=== PATIENT | male | born 1970 | race Hispanic/Latino ===

== ENCOUNTER 2016-12-24 17:55 | Emergency (ER) | payer OTHER ==
[2016-12-24 17:55] VITALS: BMI 28.0
[2016-12-24 18:14] VITALS: RESP 16
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
[2016-12-24 20:15] VITALS: BP 144/81; PULSE 72; TEMP 98.2; O2SAT 99
--- NOTE | 2016-12-25 10:05 | RAD ---
PROCEDURE: Left Knee Radiographs. HISTORY: Pain. COMPARISON: None. FINDINGS: BONES: Normal. No fracture. JOINTS: Normal. No osteoarthritis. JOINT EFFUSION: None. OTHER FINDINGS: None. IMPRESSION: Normal radiographs of the left knee.
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
== END 2016-12-24 20:16 | disposition home or self-care (01) ==
LOC: ED 17:55
DX: S83.92XA Sprain of unspecified site of left knee, initial encounter (principal); V49.59XA Passenger injured in collision with other motor vehicles in traffic accident, initial encounter; Y92.410 Unspecified street and highway as the place of occurrence of the external cause; M54.9 Dorsalgia, unspecified
CPT/HCPCS: 29530; 72110; 73562; 96372; 99284; J1885

== ENCOUNTER 2017-02-06 09:47 | Emergency (ER) | payer OTHER ==
[2017-02-06 09:53] VITALS: BMI 27.9
[2017-02-06 09:56] VITALS: BP 161/92; PULSE 91; RESP 17; TEMP 99; O2SAT 96
--- NOTE | 2017-02-06 10:31 | ED PDOC ---
Arrival/HPI - General Chief Complaint: Upper Extremity Problem/Injury Time Seen by Provider: 02/06/17 10:21 Historian: Patient - History of Present Illness Narrative History of Present Illness (Text): 02/06/17 10:21 This 46 yo male presents to this ED c/o left 2nd finger injury x [employer]. 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 Patient is left hand dominant. Denies other complains. Time/Duration: Prior to Arrival Context: Work Past Medical History - Provider Review Nursing Documentation Reviewed: Yes - Infectious Disease Hx of Infectious Diseases: None - Tetanus Immunization Tetanus Immunization: Unknown - Past Medical History Past Medical History: No Previous - Cardiac Hx Cardiac Disorders: No - Pulmonary Hx Respiratory Disorders: No - Neurological Hx Neurological Disorder: No - HEENT Hx HEENT Disorder: No - Renal Hx Renal Disorder: Yes Hx Kidney Stones: Yes - Endocrine/Metabolic Hx Endocrine Disorders: Yes Hx Diabetes Mellitus Type 2: Yes - Hematological/Oncological Hx Blood Disorders: Yes Hx Hepatitis C: Yes - Integumentary Hx Dermatological Disorder: No - Musculoskeletal/Rheumatological Hx Musculoskeletal Disorders: Yes Hx Back Pain: Yes - Gastrointestinal Hx Gastrointestinal Disorders: No - Genitourinary/Gynecological Hx Genitourinary Disorders: No - Psychiatric Hx Psychophysiologic Disorder: No Hx Depression: No Hx Emotional Abuse: No Hx Physical Abuse: No Hx Substance Use: No - Past Surgical History Past Surgical History: No Previous - Surgical History Other/Comment: lithotripsy - Anesthesia Hx Anesthesia: Yes (denies) Hx Anesthesia Reactions: No Hx Malignant Hyperthermia: No - Suicidal Assessment Feels Threatened In Home Enviroment: No Family/Social History - Physician Review Nursing Documentation Reviewed: Yes Family/Social History: No Known Family HX Smoking Status: Former Smoker Hx Alcohol Use: No Hx Substance Use: No Hx Substance Use Treatment: No Allergies/Home Meds Allergies/Adverse Reactions: Allergies No Known Allergies Allergy (Verified 02/06/17 09:53) Home Medications: Home Meds Medication Instructions Recorded Confirmed MetFORMIN [glucoPHAGE] 500 mg PO BID 02/06/17 02/06/17 Review of Systems - Review of Systems Constitutional: Normal. absent: Fatigue, Weight Change, Fevers Eyes: Normal ENT: Normal Respiratory: Normal Cardiovascular: Normal Gastrointestinal: Normal Genitourinary Male: Normal Musculoskeletal: Other (Finger injury) Skin: Normal Neurological: Normal Endocrine: Normal Hemo/Lymphatic: Normal Psychiatric: Normal Physical Exam Vital Signs Temp Pulse Resp BP Pulse Ox 02/06/17 09:53 99 F 91 H 17 161/92 H 96 Temperature: Afebrile Blood Pressure: Hypertensive Pulse: Regular Respiratory Rate: Normal Appearance: Positive for: Well-Appearing, Non-Toxic, Comfortable Pain Distress: None Mental Status: Positive for: Alert and Oriented X 3 - Systems Exam Head: Present: Atraumatic, Normocephalic Pupils: Present: PERRL Extroacular Muscles: Present: EOMI Conjunctiva: Present: Normal Mouth: Present: Moist Mucous Membranes Upper Extremity: Present: NORMAL PULSES, Tenderness, Neurovascularly Intact, Capillary Refill < 2s, Deformity (mild deformity left index finger), Norm 2-Pt Discrimination. No: Cyanosis, Edema Lower Extremity: Present: Normal Inspection, Normal ROM Neurological: Present: GCS=15, CN II-XII Intact, Speech Normal Skin: Present: Warm, Dry, Normal Color. No: Rashes Psychiatric: Present: Alert, Oriented x 3 Medical Decision Making - RAD Interpretation Narrative RAD Interpretations (Text): 02/06/17 11:25 Accession No. : [id number] Patient Name / ID : MARY HOWE / [id number] Exam Date : 02/06/2017 10:45:16 ( Approved ) Study Comment : Sex / Age : M / [id number] Creator : Abhishek Mejia MD Dictator : Abhishek Mejia MD Extractor Tender Raw Stock : Lead Recreation Assistant : Abhishek Mejia MD Approver2 : Report Date : 02/06/2017 11:12:20 My Comment : PROCEDURE: Left Hand Radiographs. HISTORY: pain r/o fx. vs dislocation COMPARISON: None. FINDINGS: BONES: Normal. No fracture. JOINTS: There is dislocation of the 2nd PIP joint. No evidence of fracture SOFT TISSUES: Normal. OTHER FINDINGS: None. IMPRESSION: There is dislocation of the 2nd PIP joint. No evidence of fracture 02/06/17 12:06 Post Reduction Finger x-rays: dislocation has been successful. Good alignment. Radiology Orders: 02/06/17 10:35 HAND LEFT 2ND DIGIT (FINGER) [RAD] Stat 02/06/17 11:25 HAND LEFT 2ND DIGIT (FINGER) [RAD] Stat - Procedure PROCEDURE NOTE (Text): 02/06/17 11:30 PROCEDURE: REDUCTION Performed by the emergency provider Time: 11: 30 am Consent: Informed consent, after discussion of the risks, benefits, and alternatives to the procedure, was obtained. Timeout: A timeout to verify the correct patient, procedure, and site was performed immediately prior to the procedure. Indication: left index finger dislocation Location: left 2nd digit Sedation: local lidocaine w/o Epi, 2 cc, digital block Pre-procedure neurovascular status: Distal neurovascular status intact. Technique: traction and counter traction. Post-procedure neurovascular status: Distal neurovascular status remains intact. Confirmation: Post-reduction films confirm reduction. See post-procedure X-Ray interpretation. Post-procedure: Patient tolerated the procedure well with no immediate complications. The reduction site was immobilized with a finger splint. Disposition/Present on Arrival - Present on Arrival Any Indicators Present on Arrival: No History of DVT/PE: No History of Uncontrolled Diabetes: No Urinary Catheter: No History of Decub. Ulcer: No History Surgical Site Infection Following: None - Disposition Have Diagnosis and Disposition been Completed?: Yes Diagnosis: Fracture/dislocation, finger, proximal/middle phalanx Disposition: HOME/ ROUTINE Disposition Time: 12:08 Patient Plan: Discharge Patient Problems: Current Active Problems Problem Status Onset Fracture/dislocation, finger, proximal/middle phalanx Acute Condition: GOOD Discharge Instructions (ExitCare): Finger Dislocation (ED) Additional Instructions: Call private Hand orthopedist doctor in 1-2 days for revaluation. Do not remove finger splint. Stone Grader Comp. Return to emergency if finger pain returns, or if splint is too tight causing numbness or increase pain / swelling. Prescriptions: Naproxen [Naprosyn Tab] 375 mg PO BID PRN #10 tab PRN Reason: Pain, Severe (8-10) Referrals: PCP,NO [Primary Care Provider] - Follow up with primary Naren Triplett MD [Staff Provider] - Follow up with primary Forms: WORK NOTE
--- NOTE | 2017-02-06 11:14 | RAD ---
PROCEDURE: Left Hand Radiographs. HISTORY: pain r/o fx. vs dislocation COMPARISON: None. FINDINGS: BONES: Normal. No fracture. JOINTS: There is dislocation of the 2nd PIP joint. No evidence of fracture SOFT TISSUES: Normal. OTHER FINDINGS: None. IMPRESSION: There is dislocation of the 2nd PIP joint. No evidence of fracture
--- NOTE | 2017-02-06 12:11 | RAD ---
PROCEDURE: Left Hand Radiographs. HISTORY: post reduction.. 2 views COMPARISON: Earlier same day FINDINGS: BONES: Normal. No fracture. JOINTS: Normal. No osteoarthritic changes. SOFT TISSUES: Normal. OTHER FINDINGS: None. IMPRESSION: Successful reduction of dislocation of the 2nd PIP joint. No evidence of fracture
== END 2017-02-06 11:00 | disposition home or self-care (01) ==
LOC: ED 09:47
DX: S62.611A Displaced fracture of proximal phalanx of left index finger, initial encounter for closed fracture (principal); W23.0XXA Caught, crushed, jammed, or pinched between moving objects, initial encounter; Y93.89 Activity, other specified; Y92.89 Other specified places as the place of occurrence of the external cause; Y99.8 Other external cause status

== ENCOUNTER 2017-02-07 20:52 | Emergency (ER) | payer SELFPAY ==
[2017-02-07 20:52] VITALS: BMI 27.9
[2017-02-07 21:09] VITALS: BP 157/94; PULSE 79; RESP 17; TEMP 98.6; O2SAT 96
[2017-02-07] MEDS ORDERED: Oxycodone/Acetaminophen 5/325 mg Tab PO STA (21:14)
--- NOTE | 2017-02-07 21:25 | ED PDOC ---
Arrival/HPI - General Chief Complaint: Finger,Hand,&Wrist Time Seen by Provider: 02/07/17 21:03 Historian: Patient - History of Present Illness Narrative History of Present Illness (Text): 02/07/17 21:23 46yo male present with left 2nd finger pain. He was seen here yesterday for same finger dislocation and discharge homed with finger splint in place. He came back to ED today complaining of sever pain to the finger. He denies any new trauma. Denies paresthesia, any other complaint. Past Medical History - Provider Review Nursing Documentation Reviewed: Yes - Infectious Disease Hx of Infectious Diseases: None - Tetanus Immunization Tetanus Immunization: Unknown - Past Medical History Past Medical History: No Previous - Cardiac Hx Cardiac Disorders: No - Pulmonary Hx Respiratory Disorders: No - Neurological Hx Neurological Disorder: No - HEENT Hx HEENT Disorder: No - Renal Hx Renal Disorder: Yes Hx Kidney Stones: Yes - Endocrine/Metabolic Hx Endocrine Disorders: Yes Hx Diabetes Mellitus Type 2: Yes - Hematological/Oncological Hx Blood Disorders: Yes Hx Hepatitis C: Yes - Integumentary Hx Dermatological Disorder: No - Musculoskeletal/Rheumatological Hx Musculoskeletal Disorders: Yes Hx Back Pain: Yes - Gastrointestinal Hx Gastrointestinal Disorders: No - Genitourinary/Gynecological Hx Genitourinary Disorders: No - Psychiatric Hx Psychophysiologic Disorder: No Hx Depression: No Hx Emotional Abuse: No Hx Physical Abuse: No Hx Substance Use: No - Past Surgical History Past Surgical History: No Previous - Surgical History Other/Comment: lithotripsy - Anesthesia Hx Anesthesia: Yes (denies) Hx Anesthesia Reactions: No Hx Malignant Hyperthermia: No - Suicidal Assessment Feels Threatened In Home Enviroment: No Family/Social History - Physician Review Nursing Documentation Reviewed: Yes Family/Social History: Unknown Family HX Smoking Status: Former Smoker Hx Alcohol Use: No Hx Substance Use: No Hx Substance Use Treatment: No Allergies/Home Meds Allergies/Adverse Reactions: Allergies No Known Allergies Allergy (Verified 02/06/17 09:53) Home Medications: Home Meds Medication Instructions Recorded Confirmed MetFORMIN [glucoPHAGE] 500 mg PO BID 02/06/17 02/07/17 Review of Systems - Physician Review All systems were reviewed & negative as marked: Yes - Review of Systems Constitutional: Normal Eyes: Normal ENT: Normal Respiratory: Normal Cardiovascular: Normal Gastrointestinal: Normal Genitourinary Male: Normal Musculoskeletal: Arthralgias (LEft 3nd finger pain) Skin: Normal Neurological: Normal Endocrine: Normal Hemo/Lymphatic: Normal Psychiatric: Normal Physical Exam Vital Signs Reviewed: Yes Vital Signs Temp Pulse Resp BP Pulse Ox 02/07/17 21:08 98.6 F 79 17 157/94 H 96 02/07/17 20:54 98.8 F 80 16 172/95 H 97 Temperature: Afebrile Blood Pressure: Normal Pulse: Regular Respiratory Rate: Normal Appearance: Positive for: Well-Appearing, Non-Toxic, Comfortable Pain Distress: None Mental Status: Positive for: Alert and Oriented X 3 - Systems Exam Head: Present: Atraumatic, Normocephalic Pupils: Present: PERRL Extroacular Muscles: Present: EOMI Conjunctiva: Present: Normal Mouth: Present: Moist Mucous Membranes Neck: Present: Normal Range of Motion Respiratory/Chest: Present: Clear to Auscultation, Good Air Exchange. No: Respiratory Distress, Accessory Muscle Use Cardiovascular: Present: Regular Rate and Rhythm, Normal S1, S2. No: Murmurs Abdomen: Present: Normal Bowel Sounds. No: Tenderness, Distention, Peritoneal Signs Back: Present: Normal Inspection Upper Extremity: Present: NORMAL PULSES (Left wrist), Tenderness (Left 2nd finger), Swelling (Mild swelling of left 2nd finger), Neurovascularly Intact, Other (Finger splint noted in place on left 2nd finger). No: Cyanosis, Edema Lower Extremity: Present: Normal Inspection. No: Edema Neurological: Present: GCS=15, CN II-XII Intact, Speech Normal Skin: Present: Warm, Dry, Normal Color. No: Rashes Psychiatric: Present: Alert, Oriented x 3, Normal Insight, Normal Concentration Medical Decision Making ED Course and Treatment: 02/07/17 21:27 Finger splint appeared tight on finger. Splint removed. No discoloration of finger noted. NVI. Unable to access ROM secondary to pain. Perocet ordered. Finger xray ordered. Will re evaluate 02/07/17 21:32 Left hand xray - No acute fracture noted. Result was DW the pt. Pt's is likely secondary to the tight splint on the finger. Finger will be gently ramirez taped. Referred to his PMD. Rx of Tramadol given. TRT ED for any new or worsening symptoms. - RAD Interpretation Radiology Orders: 02/07/17 21:13 HAND LEFT 2ND DIGIT (FINGER) [RAD] Stat - Medication Orders Current Medication Orders: Discontinued Medications Oxycodone/Acetaminophen (Percocet 5/325 Mg Tab) 1 tab PO STAT STA Stop: 02/07/17 21:15 Last Admin: 02/07/17 21:25 Dose: 1 tab Disposition/Present on Arrival - Present on Arrival Any Indicators Present on Arrival: No History of DVT/PE: No History of Uncontrolled Diabetes: No Urinary Catheter: No History of Decub. Ulcer: No History Surgical Site Infection Following: None - Disposition Have Diagnosis and Disposition been Completed?: Yes Diagnosis: Finger pain Disposition: HOME/ ROUTINE Disposition Time: 21:40 Patient Plan: Discharge Condition: STABLE Discharge Instructions (ExitCare): Arthralgia (ED) Additional Instructions: Follow up with your Doctor Return to ED for any new or worsening symptoms Prescriptions: traMADol [Ultram] 50 mg PO TID #9 tab Referrals: Naren Triplett MD [Staff Provider] - Follow up with primary
--- NOTE | 2017-02-08 09:29 | RAD ---
PROCEDURE: Left Hand Radiographs. HISTORY: finger pain s/p dislocation COMPARISON: 02/06/2017 FINDINGS: BONES: Normal. No fracture. JOINTS: Normal. No osteoarthritic changes. SOFT TISSUES: Normal. OTHER FINDINGS: None. IMPRESSION: Negative study
== END 2017-02-07 21:45 | disposition home or self-care (01) ==
LOC: ED 20:52
DX: M79.645 Pain in left finger(s) (principal)

== ENCOUNTER 2018-07-13 22:10 | Emergency (ER) | payer SELFPAY ==
[2018-07-13 22:16] VITALS: BMI 27.2
[2018-07-13 22:24] VITALS: BP 142/82; PULSE 77; RESP 20; TEMP 98; O2SAT 99
--- NOTE | 2018-07-13 22:43 | ED PDOC ---
Arrival/HPI - General Chief Complaint: Medical Clearance Time Seen by Provider: 07/13/18 22:25 Historian: Patient, Police - History of Present Illness Narrative History of Present Illness (Text): 07/13/18 22:34 47 year old male whose past medical history includes diabetes, presents to the emergency department by police under arrest complaining of elevated blood sugar and occasional palpitations. Patient states he is a diabetic and currently on Metformin. Patient denies any fevers, chills, current chest pain, shortness of breath, abdominal pain, nausea, vomiting, diarrhea, back pain, neck pain, urinary symptoms, headache, dizziness, or any other complaint. Symptom Onset: Sudden Symptom Course: Unchanged Activities at Onset: Light Past Medical History - Provider Review Nursing Documentation Reviewed: Yes - Infectious Disease Hx of Infectious Diseases: None - Tetanus Immunization Tetanus Immunization: Unknown - Past Medical History Past Medical History: No Previous - Cardiac Hx Cardiac Disorders: No Hx Hypertension: Yes - Pulmonary Hx Respiratory Disorders: No - Neurological Hx Neurological Disorder: No - HEENT Hx HEENT Disorder: No - Renal Hx Renal Disorder: Yes Hx Kidney Stones: Yes - Endocrine/Metabolic Hx Endocrine Disorders: Yes Hx Diabetes Mellitus Type 2: Yes - Hematological/Oncological Hx Blood Disorders: Yes Hx Hepatitis C: Yes - Integumentary Hx Dermatological Disorder: No - Musculoskeletal/Rheumatological Hx Musculoskeletal Disorders: Yes Hx Back Pain: Yes - Gastrointestinal Hx Gastrointestinal Disorders: No - Genitourinary/Gynecological Hx Genitourinary Disorders: No - Psychiatric Hx Psychophysiologic Disorder: No Hx Depression: No Hx Emotional Abuse: No Hx Physical Abuse: No Hx Substance Use: No - Past Surgical History Past Surgical History: No Previous - Surgical History Other/Comment: lithotripsy - Anesthesia Hx Anesthesia: Yes (denies) Hx Anesthesia Reactions: No Hx Malignant Hyperthermia: No - Suicidal Assessment Feels Threatened In Home Enviroment: No Family/Social History - Physician Review Nursing Documentation Reviewed: Yes Family/Social History: No Known Family HX Smoking Status: Former Smoker Hx Alcohol Use: No Hx Substance Use: No Hx Substance Use Treatment: No Allergies/Home Meds Allergies/Adverse Reactions: Allergies No Known Allergies Allergy (Verified 02/06/17 09:53) Home Medications: Home Meds Medication Instructions Recorded Confirmed MetFORMIN [glucoPHAGE] 500 mg PO BID 02/06/17 02/07/17 Review of Systems - Physician Review All systems were reviewed & negative as marked: Yes - Review of Systems Constitutional: absent: Fevers, Other (Chills) Respiratory: absent: SOB Cardiovascular: Palpitations. absent: Chest Pain Gastrointestinal: absent: Diarrhea, Nausea, Vomiting Genitourinary Male: absent: Dysuria, Frequency, Hematuria Musculoskeletal: absent: Back Pain, Neck Pain Neurological: absent: Headache, Dizziness Physical Exam Vital Signs Reviewed: Yes Vital Signs Temp Pulse Resp BP Pulse Ox 07/13/18 22:16 98.0 F 77 20 142/82 99 Temperature: Afebrile Blood Pressure: Normal Pulse: Regular Respiratory Rate: Normal Appearance: Positive for: Well-Appearing, Non-Toxic, Comfortable Pain Distress: None Mental Status: Positive for: Alert and Oriented X 3 - Systems Exam Head: Present: Atraumatic, Normocephalic Pupils: Present: PERRL Extroacular Muscles: Present: EOMI Conjunctiva: Present: Normal Ears: Present: Normal Mouth: Present: Moist Mucous Membranes Neck: Present: Normal Range of Motion Respiratory/Chest: Present: Clear to Auscultation, Good Air Exchange. No: Respiratory Distress, Accessory Muscle Use Cardiovascular: Present: Regular Rate and Rhythm, Normal S1, S2. No: Murmurs Abdomen: No: Tenderness, Distention, Peritoneal Signs Back: Present: Normal Inspection Upper Extremity: Present: Normal Inspection. No: Cyanosis, Edema Lower Extremity: Present: Normal Inspection. No: Edema Neurological: Present: GCS=15, CN II-XII Intact, Speech Normal Skin: Present: Warm, Dry, Normal Color. No: Rashes Psychiatric: Present: Alert, Oriented x 3, Normal Insight, Normal Concentration Medical Decision Making ED Course and Treatment: 07/13/18 22:34 Impression: 47 year old male presents complaining of elevated blood sugar and occasional chest palpitations. Plan: -- EKG -- Fingerstick -- Reassess and disposition Progress Notes: 07/13/18 22:45 EKG shows NSR at 74 BPM withno acute changes. Interpreted by me. - EKG Interpretation Interpreted by ED Physician: Yes Type: 12 lead EKG - Scribe Statement The provider has reviewed the documentation as recorded by the Lazarus Titus Provider Scribe Attestation: All medical record entries made by the Lazarus were at my direction and personally dictated by me. I have reviewed the chart and agree that the record accurately reflects my personal performance of the history, physical exam, medical decision making, and the department course for this patient. I have also personally directed, reviewed, and agree with the discharge instructions and disposition. Disposition/Present on Arrival - Present on Arrival Any Indicators Present on Arrival: No History of DVT/PE: No History of Uncontrolled Diabetes: No Urinary Catheter: No History of Decub. Ulcer: No History Surgical Site Infection Following: None - Disposition Have Diagnosis and Disposition been Completed?: Yes Diagnosis: Diabetes mellitus, Palpitation Disposition: RELEASED IN [employer]ICE C[employer] Disposition Time: 23:36 Condition: STABLE Discharge Instructions (ExitCare): Diabetes Type 2 (DC) Additional Instructions: Follow up with your doctor/ PATIENT MEDICALLY CLEARED FOR INCARCERATION Forms: [employer] ([employer])
--- NOTE | 2018-07-14 12:27 | CARD ---
APPROVED REPORT Date of service: 07/13/2018 EKG Measurement Heart [id number] <Conclusion> Normal sinus rhythm Minimal voltage criteria for LVH, may be normal variant Borderline ECG
== END 2018-07-13 23:58 ==
LOC: ED 22:10
DX: E11.9 Type 2 diabetes mellitus without complications (principal); Z79.84 Long term (current) use of oral hypoglycemic drugs; R00.2 Palpitations

== ENCOUNTER 2018-08-25 14:23 | Emergency (ER) | payer MEDICAID, OTHER ==
[2018-08-25 15:06] VITALS: BMI 28.7
[2018-08-25 15:07] VITALS: BP 124/76; PULSE 86; RESP 18; TEMP 98.3
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
[2018-08-25] MEDS ORDERED: Oxycodone/Acetaminophen 5/325 mg Tab PO STA (17:04)
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
[2018-08-25 19:30] VITALS: O2SAT 98
== END 2018-08-25 19:29 | disposition home or self-care (01) ==
LOC: ED 14:23
DX: S42.191A Fracture of other part of scapula, right shoulder, initial encounter for closed fracture (principal); Y00.XXXA Assault by blunt object, initial encounter; Y92.9 Unspecified place or not applicable

== ENCOUNTER 2018-10-15 16:16 | Emergency (ER) | payer MEDICAID, OTHER ==
[2018-10-15 16:25] VITALS: BMI 26.5
--- NOTE | 2018-10-15 16:43 | ED PDOC ---
Arrival/HPI - General Historian: Patient - History of Present Illness Narrative History of Present Illness (Text): 10/15/18 16:39 47 y/o male with PMH of HTN, DM, chronic back pain, under police custody, presents to the ED for psychiatric evaluation for attempted suicide today. Robbie doan attempted to hang himself with a belt at home when the police found him and arrested him, but the belt broke. 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 States that his daughter last year in February and since then he has had a hard time coping with her . He further adds that he has not been on any medications for his chronic diseases. Other psychiatric symptoms: (-) hallucinations, (-) homicidal ideation, (-) trauma, (-) fever, (-) headache, (-) dyspnea, (-) vomiting, (-) substance abuse, (+) suicidal ideation, (+) patient intent of initiating a suicide attempt, (-) plan. <Susanne Davis PA-C - Last Filed: 10/16/18 00:32> <Gabriel Dunn - Last Filed: 10/16/18 04:25> - General Chief Complaint: Psychiatric Evaluation Time Seen by Provider: 10/15/18 16:27 Past Medical History - Infectious Disease Hx of Infectious Diseases: None - Tetanus Immunization Tetanus Immunization: Unknown - Past Medical History Past Medical History: No Previous - Cardiac Hx Cardiac Disorders: Yes Hx Hypertension: Yes - Pulmonary Hx Respiratory Disorders: Yes Hx Chronic Obstructive Pulmonary Disease (COPD): Yes - Neurological Hx Neurological Disorder: No - HEENT Hx HEENT Disorder: No - Renal Hx Renal Disorder: Yes Hx Kidney Stones: Yes - Endocrine/Metabolic Hx Endocrine Disorders: Yes Hx Diabetes Mellitus Type 2: Yes - Hematological/Oncological Hx Blood Disorders: Yes Hx Hepatitis C: Yes - Integumentary Hx Dermatological Disorder: No - Musculoskeletal/Rheumatological Hx Musculoskeletal Disorders: Yes Hx Back Pain: Yes - Gastrointestinal Hx Gastrointestinal Disorders: No - Genitourinary/Gynecological Hx Genitourinary Disorders: No - Psychiatric Hx Psychophysiologic Disorder: No Hx Substance Use: No - Past Surgical History Past Surgical History: No Previous - Surgical History Other/Comment: lithotripsy - Anesthesia Hx Anesthesia: Yes (denies) Hx Anesthesia Reactions: No Hx Malignant Hyperthermia: No - Suicidal Assessment Feels Threatened In Home Enviroment: No <Susanne Davis PA-C - Last Filed: 10/16/18 00:32> Family/Social History Family/Social History: No Known Family HX Smoking Status: Heavy Smoker > 10 Cigarettes Daily Hx Alcohol Use: Yes Frequency of alcohol use: Socially Hx Substance Use: No Hx Substance Use Treatment: No <Susanne Davis PA-C - Last Filed: 10/16/18 00:32> Allergies/Home Meds <Susanne Davis PA-C - Last Filed: 10/16/18 00:32> <Gabriel Dunn - Last Filed: 10/16/18 04:25> Allergies/Adverse Reactions: Allergies No Known Allergies Allergy (Verified 02/06/17 09:53) Review of Systems - Review of Systems Constitutional: absent: Fatigue, Fevers Respiratory: absent: SOB, Cough, Sputum Cardiovascular: absent: Chest Pain, Palpitations, Edema Gastrointestinal: absent: Abdominal Pain, Diarrhea, Nausea, Vomiting Genitourinary Male: absent: Dysuria, Frequency, Hematuria Musculoskeletal: absent: Arthralgias, Back Pain, Neck Pain Skin: absent: Rash, Pruritis, Skin Lesions Neurological: absent: Headache, Dizziness Psychiatric: Depression, Suicidal Ideation. absent: Anxiety <Susanne Davis PA-C - Last Filed: 10/16/18 00:32> Physical Exam Vital Signs Temp Pulse Resp BP Pulse Ox 10/15/18 16:33 98.2 F 80 18 128/86 98 Temperature: Afebrile Blood Pressure: Normal Pulse: Regular Respiratory Rate: Normal Appearance: Positive for: Well-Appearing, Non-Toxic, Comfortable, Other (Patient is tearful. ) Pain Distress: None Mental Status: Positive for: Alert and Oriented X 3 - Systems Exam Head: Present: Abrasion (+abrasion to the R side of the forehead). No: Tenderness, Contusion, Swelling, Ecchymosis, Laceration Pupils: Present: PERRL Extroacular Muscles: Present: EOMI Conjunctiva: Present: Normal Mouth: Present: Moist Mucous Membranes Neck: Present: Normal Range of Motion Respiratory/Chest: Present: Clear to Auscultation, Good Air Exchange. No: Respiratory Distress, Accessory Muscle Use Cardiovascular: Present: Regular Rate and Rhythm, Normal S1, S2. No: Murmurs Abdomen: No: Tenderness, Distention, Peritoneal Signs Back: Present: Normal Inspection Upper Extremity: Present: Normal Inspection. No: Cyanosis, Edema Lower Extremity: Present: Normal Inspection. No: Edema Neurological: Present: GCS=15, CN II-XII Intact, Speech Normal Skin: Present: Warm, Dry, Normal Color. No: Rashes Psychiatric: Present: Alert, Oriented x 3, Normal Insight, Normal Concentration <Susanne Davis PA-C - Last Filed: 10/16/18 00:32> Vital Signs Temp Pulse Resp BP Pulse Ox 10/15/18 16:33 98.2 F 80 18 128/86 98 <Gabriel Dunn - Last Filed: 10/16/18 04:25> Medical Decision Making ED Course and Treatment: 10/15/18 16:38 Plan: -- Labs -- Urinalysis -- EKG -- CXR -- PES evaluation -- CT head -- Tylenol PO -- Tdap IM EKG : NSR at 64 bpm, no acute ST changes. CXR : NAD. Labs : UDS +opiates and cocaine, rest of the labs wnl. EXAM: CT Head without Intravenous Contrast. Electronically signed on Oct 15, 2018 9:56:13 PM EST by: Randell Dominguez M.D. IMPRESSION: No acute intracranial pathology. Bilateral ethmoid sinusitis. On reevaluation, patient is laying in bed comfortably, remains awake alert and oriented 3 in no acute distress. Patient is medically cleared for crisis evaluation. Patient is seen and evaluated by crisis. As per crisis evaluation, decision made for [facility] screen. 10/16/18 00:30 Patient resting comfortably in the ER, still pending [facility] screen. Patient has no complaints at this time. - RAD Interpretation Radiology Orders: 10/15/18 16:35 CHEST PORTABLE [RAD] Stat <Susanne Davis PA-C - Last Filed: 10/16/18 00:32> ED Course and Treatment: 10/16/18 03:00 Patient was seen by [facility] screener and accepted for transfer pending bed availability. 10/16/18 07:00 Case endorsed to /still awaiting [facility] bed availability/transfer - Lab Interpretations Lab Results: Total Bilirubin 1.2 mg/dL (0.2-1.3) 10/15/18 18:00 AST 67 U/L (17-59) H 10/15/18 18:00 ALT 67 U/L (7-56) H 10/15/18 18:00 Alkaline Phosphatase 81 U/L (38-126) 10/15/18 18:00 Total Protein 8.0 g/dL (5.8-8.3) 10/15/18 18:00 Albumin 3.9 g/dL (3.0-4.8) 10/15/18 18:00 Globulin 4.1 gm/dL 10/15/18 18:00 Albumin/Globulin Ratio 1.0 (1.1-1.8) L 10/15/18 18:00 Urine Color Yellow (YELLOW) 10/15/18 21:20 Urine Appearance Clear (CLEAR) 10/15/18 21:20 Urine pH 6.0 (4.7-8.0) 10/15/18 21:20 Ur Specific [place] >= 1.030 (1.005-1.035) 10/15/18 21:20 Urine Protein Negative mg/dL (<30 mg/dL) 10/15/18 21:20 Urine Glucose (UA) Negative mg/dL (NEGATIVE) 10/15/18 21:20 Urine Ketones Negative mg/dL (NEGATIVE) 10/15/18 21:20 Urine Blood Negative (NEGATIVE) 10/15/18 21:20 Urine Nitrate Negative (NEGATIVE) 10/15/18 21:20 Urine Bilirubin Negative (NEGATIVE) 10/15/18 21:20 Urine Urobilinogen 0.2 E.U./dL (<1 E.U./dL) 10/15/18 21:20 Ur Leukocyte Esterase Negative Jayden/uL (NEGATIVE) 10/15/18 21:20 - RAD Interpretation Radiology Orders: 10/15/18 16:35 CHEST PORTABLE [RAD] Stat 10/15/18 16:50 HEAD W/O CONTRAST [CT] Stat - Medication Orders Current Medication Orders: Discontinued Medications Acetaminophen (Tylenol 325mg Tab) 975 mg PO STAT STA Stop: 10/15/18 16:51 Tetanus/Reduced Diphtheria/Acell Pertussis (Boostrix Vaccine Inj) 0.5 ml IM .ONCE ONE Stop: 10/15/18 16:51 <Gabriel Dunn - Last Filed: 10/16/18 04:25> - PA / GUM ROLLING MACHINE OPERATOR / Resident Statement BECCA has reviewed & agrees with the documentation as recorded. <Susanne Davis PA-C - Last Filed: 10/16/18 00:32> - PA / GUM ROLLING MACHINE OPERATOR / Resident Statement BECCA has reviewed & agrees with the documentation as recorded. BECCA has examined the patient and agrees with the treatment plan. <Gabriel Dunn - Last Filed: 10/16/18 04:25> Disposition/Present on Arrival - Present on Arrival Any Indicators Present on Arrival: No History of DVT/PE: No History of Uncontrolled Diabetes: No Urinary Catheter: No History of Decub. Ulcer: No History Surgical Site Infection Following: None - Disposition Have Diagnosis and Disposition been Completed?: Yes <Susanne Davis PA-C - Last Filed: 10/16/18 00:32> - Present on Arrival Any Indicators Present on Arrival: No - Disposition Have Diagnosis and Disposition been Completed?: No Disposition Time: 07:00 <Gabriel Dunn - Last Filed: 10/16/18 04:25> - Disposition Diagnosis: Suicidal ideation, Head injury Patient Problems: Current Active Problems Problem Status Onset Head injury Acute Suicidal ideation Acute Condition: STABLE Forms: [employer] ([employer])
[2018-10-15] MEDS ORDERED: TDAP Vaccine 0.5 mL Syr IM ONE (16:50)
--- NOTE | 2018-10-15 17:33 | RAD ---
Date of service: 10/15/2018 HISTORY: Psych evaluation COMPARISON: Comparison made with prior chest radiograph 03/13/2015 FINDINGS: LUNGS: Appears to be some minor linear atelectasis and/or scarring in the left lung base PLEURA: No significant pleural effusion identified, no pneumothorax apparent. CARDIOVASCULAR: No aortic atherosclerotic calcification present. Heart size upper limits of normal. No pulmonary vascular congestion. OSSEOUS STRUCTURES: Mild multilevel degenerative spondylosis of the thoracic spine VISUALIZED UPPER ABDOMEN: Normal. OTHER FINDINGS: None. IMPRESSION: Minor linear atelectasis or scarring left lung base
[2018-10-15 18:35] LABS: ALBUMIN 3.9 g/dL (3.0-4.8); ALT/SGPT 67 U/L (7-56); AST/SGOT 67 U/L (17-59); BLOOD UREA NITROGEN 10 mg/dL (7-21); CALCIUM 9.1 mg/dL (8.4-10.5); GFR NON-AFRICAN AMERICAN > 60
[2018-10-15 18:44] LABS: BASO # 0.01 K/mm3 (0.0-2.0); BASO % 0.2 % (0.0-3.0); EOS # 0.1 (0.0-0.7); EOS % 1.7 % (1.5-5.0); HEMOGLOBIN 14.3 g/dL (14.0-18.0); LYMPH # 1.4 (1.2-3.4); LYMPH % 22.6 % (22.0-35.0); MEAN CELL VOLUME 90.7 fl (80.0-105.0); MEAN CORPUSCULAR HGB CONC 34.2 g/dl (31.0-37.0); MEAN PLATELET VOLUME 10.4 fl (7.0-11.0); MONO # 0.4 (0.1-0.6); MONO % 6.8 % (1.0-6.0); RBC 4.61 10^6/uL (3.5-6.1); RED CELL DISTRIBUTION WIDTH 14.1 % (11.5-14.5); WHITE BLOOD COUNT 6.4 10^3/uL (4.5-11.0)
--- NOTE | 2018-10-15 20:09 | CARD ---
APPROVED REPORT Date of service: 10/15/2018 EKG Measurement Heart [id number] <Conclusion> Normal sinus rhythm Moderate voltage criteria for LVH, may be normal variant Prolonged QT Abnormal ECG
[2018-10-15 21:33] LABS: URINE APPEARANCE CLEAR (CLEAR); URINE BILIRUBIN NEGATIVE (NEGATIVE); URINE BLOOD NEGATIVE (NEGATIVE); URINE COLOR YELLOW (YELLOW); URINE GLUCOSE (UA) NEGATIVE (NEGATIVE); URINE LEUKOCYTE ESTERASE NEGATIVE Leu/uL (NEGATIVE); URINE PROTEIN NEGATIVE mg/dL (<30 mg/dL); URINE UROBILINOGEN 0.2 E.U./dL (<1 E.U./dL)
[2018-10-15 22:09] LABS: BARBITURATES, UR NEGATIVE (NEGATIVE); BENZODIAZEPINES, UR NEGATIVE (NEGATIVE); OPIATES, UR POSITIVE (NEGATIVE); PHENCYCLIDINE, UR NEGATIVE (NEGATIVE)
--- NOTE | 2018-10-16 07:22 | ED PDOC ---
Physical Exam Vital Signs Temp Pulse Resp BP Pulse Ox 10/16/18 05:54 98.1 F 68 16 112/59 L 96 10/16/18 03:35 98.4 F 69 18 116/68 98 10/15/18 21:42 98.1 F 70 16 118/79 100 10/15/18 19:35 98 F 78 18 120/80 98 10/15/18 16:33 98.2 F 80 18 128/86 98 Medical Decision Making ED Course and Treatment: 10/16/18 07:00 Case endorsed to me by Dr. Dunn. Still awaiting [facility] bed availability/transfer. - Lab Interpretations Lab Results: Total Bilirubin 1.2 mg/dL (0.2-1.3) 10/15/18 18:00 AST 67 U/L (17-59) H 10/15/18 18:00 ALT 67 U/L (7-56) H 10/15/18 18:00 Alkaline Phosphatase 81 U/L (38-126) 10/15/18 18:00 Total Protein 8.0 g/dL (5.8-8.3) 10/15/18 18:00 Albumin 3.9 g/dL (3.0-4.8) 10/15/18 18:00 Globulin 4.1 gm/dL 10/15/18 18:00 Albumin/Globulin Ratio 1.0 (1.1-1.8) L 10/15/18 18:00 Urine Color Yellow (YELLOW) 10/15/18 21:20 Urine Appearance Clear (CLEAR) 10/15/18 21:20 Urine pH 6.0 (4.7-8.0) 10/15/18 21:20 Ur Specific [place] >= 1.030 (1.005-1.035) 10/15/18 21:20 Urine Protein Negative mg/dL (<30 mg/dL) 10/15/18 21:20 Urine Glucose (UA) Negative mg/dL (NEGATIVE) 10/15/18 21:20 Urine Ketones Negative mg/dL (NEGATIVE) 10/15/18 21:20 Urine Blood Negative (NEGATIVE) 10/15/18 21:20 Urine Nitrate Negative (NEGATIVE) 10/15/18 21:20 Urine Bilirubin Negative (NEGATIVE) 10/15/18 21:20 Urine Urobilinogen 0.2 E.U./dL (<1 E.U./dL) 10/15/18 21:20 Ur Leukocyte Esterase Negative Jayden/uL (NEGATIVE) 10/15/18 21:20 - RAD Interpretation Radiology Orders: 10/15/18 16:35 CHEST PORTABLE [RAD] Stat 10/15/18 16:50 HEAD W/O CONTRAST [CT] Stat - Medication Orders Current Medication Orders: Discontinued Medications Acetaminophen (Tylenol 325mg Tab) 975 mg PO STAT STA Stop: 10/15/18 16:51 Tetanus/Reduced Diphtheria/Acell Pertussis (Boostrix Vaccine Inj) 0.5 ml IM .ONCE ONE Stop: 10/15/18 16:51 - Scribe Statement The provider has reviewed the documentation as recorded by the Lazarus Valdez Provider Scribe Attestation: All medical record entries made by the Scribe were at my direction and personally dictated by me. I have reviewed the chart and agree that the record accurately reflects my personal performance of the history, physical exam, medical decision making, and the department course for this patient. I have also personally directed, reviewed, and agree with the discharge instructions and disposition. Disposition/Present on Arrival - Present on Arrival Any Indicators Present on Arrival: No History of DVT/PE: No History of Uncontrolled Diabetes: No Urinary Catheter: No History of Decub. Ulcer: No History Surgical Site Infection Following: None - Disposition Diagnosis: Suicidal ideation, Head injury Patient Problems: Current Active Problems Problem Status Onset Suicidal ideation Acute Head injury Acute Condition: STABLE Forms: [employer] ([place])
[2018-10-16 09:36] VITALS: RESP 18; O2SAT 100
--- NOTE | 2018-10-16 11:42 | CT ---
Date of service: 10/15/2018 PROCEDURE: CT HEAD WITHOUT CONTRAST. HISTORY: head trauma COMPARISON: None available. TECHNIQUE: Axial computed tomography images were obtained through the head/brain without intravenous contrast. Radiation dose: Total exam DLP = 1183.44 mGy-cm. This CT exam was performed using one or more of the following dose reduction techniques: Automated exposure control, adjustment of the mA and/or kV according to patient size, and/or use of iterative reconstruction technique. FINDINGS: HEMORRHAGE: No intracranial hemorrhage. BRAIN: No mass effect or edema. No atrophy or chronic microvascular ischemic changes. Mild generalized volume loss. VENTRICLES: No obstructive hydrocephalus. CALVARIUM: Unremarkable. PARANASAL SINUSES: Mild mucosal thickening seen within the ethmoid air complex extending superiorly into the frontal sinus.. There is leftward deviation of the anterior aspect of the nasal septum MASTOID AIR CELLS: Unremarkable as visualized. No inflammatory changes. OTHER FINDINGS: None. IMPRESSION: No acute intracranial hemorrhage. Mild generalized volume loss.
[2018-10-16 18:41] VITALS: BP 106/64; PULSE 59; TEMP 98.2
== END 2018-10-16 18:49 | disposition short-term general hospital (02) ==
LOC: ED 16:16
DX: R45.851 Suicidal ideations (principal); S09.90XA Unspecified injury of head, initial encounter; X83.8XXA Intentional self-harm by other specified means, initial encounter; Y92.009 Unspecified place in unspecified non-institutional (private) residence as the place of occurrence of the external cause; E11.9 Type 2 diabetes mellitus without complications; I10 Essential (primary) hypertension; F17.210 Nicotine dependence, cigarettes, uncomplicated; J44.9 Chronic obstructive pulmonary disease, unspecified